=== PATIENT | female | born 2000 | race Caucasian/White ===

== ENCOUNTER 2024-05-24 22:52 | Emergency (ER) | payer SELFPAY ==
[~2024-05-24] VITALS: Ht 177.8 cm; Wt 149.7 kg
[2024-05-24] MEDS ORDERED: IBUPROFEN 600 MG TABLET ONE (23:06)
[2024-05-24] MEDS ORDERED: CLINDAMYCIN HCL 150 MG CAPSULE ONE (23:06)
[2024-05-24] MEDS: CLINDAMYCIN HCL 150 MG CAPSULE PO ONE (23:06)
[2024-05-24] MEDS: IBUPROFEN 600 MG TABLET PO ONE (23:07)
[2024-05-25] MEDS ORDERED: CLIN300C12 PO (00:10)
[2024-05-25] MEDS ORDERED: IBUP-1490 PO (00:10)
[2024-05-25 00:40] VITALS: BP 138/80; TEMP 98.4; O2SAT 100
== END 2024-05-25 00:40 | disposition home or self-care (01) ==
LOC: ER 22:58
DX: L03.115 Cellulitis of right lower limb (principal); M79.671 Pain in right foot; Z88.0 Allergy status to penicillin; Z88.5 Allergy status to narcotic agent
CPT/HCPCS: 73630-TC